=== PATIENT | female | born 1990 | race Caucasian/White ===

== ENCOUNTER 2021-02-08 23:23 | Emergency (ER) | payer SELFPAY ==
[~2021-02-08] VITALS: Ht 167.6 cm; Wt 63.2 kg
[~2021-02-08 23:23] MED LIST: BIRTH CONTROL PILLS; CEFTIN 250250 MG/TAB PO; CEFTIN500 MG PO; LUTERA 0.02 MG-1 TAB PO; ZOFRAN4 M1 PO
[2021-02-09 00:35] VITALS: BP 110/64; PULSE 98
== END 2021-02-09 00:35 | disposition home or self-care (01) ==
LOC: COL.ER 23:23
DX: T78.02XA Anaphylactic reaction due to shellfish (crustaceans), initial encounter (principal); F17.210 Nicotine dependence, cigarettes, uncomplicated